=== PATIENT | female | born 1980 | race Caucasian/White ===

== ENCOUNTER 2025-07-31 17:28 | Emergency (ER) | payer OTHER, SELFPAY ==
[2025-07-31 17:29] VITALS: BP 154/80; PULSE 72; RESP 16; TEMP 36.3; O2SAT 99
--- NOTE | 2025-07-31 18:30 | ED_ITS ---
HPI - Ear Problem General Chief complaint: Ear Stated complaint: ear Time Seen by Provider: 07/31/25 17:59 Source: patient and RN notes reviewed Mode of arrival: ambulatory Limitations: no limitations History of Present Illness HPI Narrative: 44-year-old female patient presents today with right ear muffling, fullness and ringing since last night. She tried a dose of ibuprofen today without relief. Denies pain or drainage to the ear. No recent illness. Related Data Home Medications ?Medication ?Instructions ?Recorded ?Confirmed ?Last Taken ?Type atorvastatin 10 mg tablet mg 07/31/25 Unknown History escitalopram oxalate 5 mg tablet mg 07/31/25 Unknown History hydrochlorothiazide 12.5 mg tablet mg 07/31/25 Unknow n History losartan 100 mg tablet mg 07/31/25 Unknown History metformin 500 mg tablet,extended mg PO 07/31/25 Unkno wn History release 24 hr tirzepatide 2.5 mg/0.5 mL mg subcut 07/31/25 Unknown History subcutaneous pen injector (Kit) Allergies Allergy/AdvReac Type Severity Reaction Status Date / Time No Known Allergies Allergy Verified 07/31/25 17:40 [facility] At time of signature, I have reviewed and agree with nursing past medical, surgical, social and family history unless otherwise noted. Please see nursing chart for further information. There is no relevant family history pertinent to the presenting complaint Exam Narrative: GENERAL: Well-appearing, well-nourished, and in no acute distress. HEAD: Normocephalic, atraumatic. EYES: EOMI. No redness or drainage. Conjunctivae normal. ENT: Mucous membranes pink and moist. Nares clear. No rhinorrhea. Left TM normal. Right TM with mild serous effusion. No evidence of bacterial infection. NECK: Normal AROM. CHEST: No respiratory distress. EXTREMITIES: Normal range of motion. No edema. SKIN: Warm, dry, no rash. Capillary refill normal. Normal skin turgor. NEURO: No focal deficits. Alert and oriented x3. Gait steady. PSYCH: Normal affect. No signs of depression or anxiety. Course Course Level of Care: Express Care Visit Vital Signs Vital signs: Vital Signs Temperature 97.4 F L 07/31/25 17:29 Pulse Rate 72 07/31/25 17:29 Respiratory Rate 16 07/31/25 17:29 Blood Pressure 154/80 H 07/31/25 17:29 Pulse Oximetry 99 07/31/25 17:29 Oxygen Delivery Room Air 07/31/25 17:29 Temperature 97.4 F L 07/31/25 17:29 Pulse Rate 72 07/31/25 17:29 Respiratory Rate 16 07/31/25 17:29 Blood Pressure 154/80 H 07/31/25 17:29 Pulse Oximetry 99 07/31/25 17:29 Oxygen Delivery Room Air 07/31/25 17:29 Reviewed MDM MDM Narrative Medical decision making narrative: 44-year-old female patient presents today with right ear muffling, fullness and ringing since last night. She tried a dose of ibuprofen today without relief. Denies pain or drainage to the ear. No recent illness. Upon exam, mild serous effusion without evidence of bacterial infection. Recommend starting Flonase. Patient agrees with plan. Vital signs stable. Anticipatory guidance given. Differential Diagnosis Differential Diagnosis: Otitis media, otitis externa, ruptured TM, serous otitis, cerumen impaction Critical Care Time Critical Care Time Critical Care Time: No Discharge Plan Discharge Clinical Impression: Acute serous otitis media of right ear Qualifiers: Recurrence: non-recurrent Qualified Code(s): H65.01 - Acute serous otitis media, right ear Patient Disposition: Home Condition: Stable Instructions: Fluid In The Ear (Serous Otitis Media) (ED) Additional Instructions: You have a collection of fluid behind your right ear drum. You may consider trying a steroid nasal spray such as Flonase to help facilitate drainage. As discussed, if you develop a fever, ear pain, drainage from the ear, please have it re-evaluated. Follow-up with your PCP in 1-2 weeks if symptoms are not improving. Patient Language: Hungarian Prescriptions: No Action atorvastatin 10 mg tablet losartan 100 mg tablet metformin 500 mg tablet extended release 24 hr PO escitalopram oxalate 5 mg tablet hydrochlorothiazide 12.5 mg tablet Mounjaro 2.5 mg/0.5 mL pen injector SUBCUT Follow-up/Referrals: PHYSICIAN NOT ON STAFF,NONSTAFF [Primary Care Provider] Time of Disposition: 18:09
== END 2025-07-31 18:12 | disposition home or self-care (01) ==
PROVIDERS: Emergency Provider Nurse Practitioner
DX: H65.01 Acute serous otitis media, right ear (principal); E78.00 Pure hypercholesterolemia, unspecified; I10 Essential (primary) hypertension; E11.9 Type 2 diabetes mellitus without complications; F32.A Depression, unspecified
CPT/HCPCS: 99211; G0463